=== PATIENT | male | born 1985 | race Caucasian/White ===

== ENCOUNTER 2016-06-23 13:24 | Emergency (ER) | payer SELFPAY ==
[2016-06-23] MEDS ORDERED: SODIUM CHLORIDE 0.9% 1,000 ML ONE (14:41)
[2016-06-23] MEDS ORDERED: ONDANSETRON 4 MG/2ML 2 ML VIAL ONE (14:41)
[2016-06-23] MEDS ORDERED: PANTOPRAZOLE SODIUM 40 MG VIAL IV ONE (14:41)
[2016-06-23] MEDS ORDERED: MORPHINE SULFATE 4 MG/ML SYRINGE ONE (14:41)
[2016-06-23 14:42] LABS: ABSOLUTE NEUTROPHIL COUNT 4.8 K/mm3 (1.8-7.7); BASO % 0.6 % (0.2-1.0); EOS # 0.1 (0.0-0.5); HEMOGLOBIN 15.3 gm/l (14.0-18.0); IMM NEUT% 0.3 % (0-1); LYMPH # 1.5 (1.0-4.8); LYMPH % 22.8 % (15-45); MEAN CELL VOLUME 95.2 fl (80.0-94.0); MEAN CORPUSCULAR HEMOGLOBIN 31.7 pg (27.0-31.0); MEAN CORPUSCULAR HGB CONC 33.3 g/dl (33.0-37.0); MONO # 0.3 (0.0-0.8); MONO % 4.7 % (4-12); NEUT % 70.6 % (43-75); PLATELET COUNT 262 K/mm3 (130-400); RED CELL DISTRIBUTION WIDTH 12.6 % (11.5-14.5)
[2016-06-23] MEDS ORDERED: MAALOX/LIDO2%VISC/SIMETHICONE 40 ML BOT ONE (15:19)
[2016-06-23 15:25] LABS: ALB/GLOB RATIO 1.4 (>1.0); ALBUMIN 4.3 gm/dL (3.5-5.7); CALCIUM 10.7 mg/dL (8.6-10.3)
== END 2016-06-23 16:22 | disposition home or self-care (01) ==
LOC: ED 13:24
DX: R10.13 Epigastric pain (principal); R19.7 Diarrhea, unspecified; K50.90 Crohn's disease, unspecified, without complications
CPT/HCPCS: 83690; 85025; 80053; 80307; 96375 ×2; 99283 ×2; 96374; A9270; J2270; C9113; J2405; J7030